=== PATIENT | male | born 1965 | race Hispanic/Latino ===

== ENCOUNTER 2017-08-03 07:45 | Outpatient (CLI) | payer BC ==
--- NOTE | 2017-08-03 10:20 | CT ---
CT HEAD WITHOUT CONTRAST: Technique: Multiple axial tomograms were obtained through the head without IV enhancement. History: Headaches. FINDINGS: No evidence of intracranial mass or hemorrhage. No evidence of infarct. Sinuses and mastoids are aera laura. IMPRESSION: No acute process. POS: [facility]
== END 2017-08-03 07:46 | disposition home or self-care (01) ==
LOC: SCSCT 07:45
PROVIDERS: ATTEND Family Medicine
DX: R51 Headache (principal)
CPT/HCPCS: 70450

== ENCOUNTER 2018-07-11 07:04 | Outpatient (CLI) | payer BC ==
--- NOTE | 2018-07-11 07:45 | ULT ---
SONOGRAM RIGHT UPPER QUADRANT: HISTORY: Normal liver function tests. FINDINGS: Large shadowing stones are present within the incompletely distended gallbladder. No gallbladder wal l thickening or pericholecystic fluid. The common duct is 0.4 cm. The liver is diffusely echogenic with an area of fatty sparing near the gallbladder fossa. No free fluid. IMPRESSION: 1. Cholelithiasis. No evidence of acute biliary obstruction. 2. Hepatosteatosis. POS: [facility]
== END 2018-07-11 07:05 | disposition home or self-care (01) ==
LOC: SCSULT 07:04
PROVIDERS: ATTEND Family Medicine
DX: R74.0 Nonspecific elevation of levels of transaminase and lactic acid dehydrogenase [LDH] (principal); K80.20 Calculus of gallbladder without cholecystitis without obstruction; K76.0 Fatty (change of) liver, not elsewhere classified
CPT/HCPCS: 76705

== ENCOUNTER 2023-12-04 09:58 | Outpatient (CLI) | payer BC | END 2023-12-04 09:59 | disposition home or self-care (01) | LOC: SCSRAD 09:58 | PROVIDERS: ATTEND Nurse Practitioner Family | DX: M47.812 Spondylosis without myelopathy or radiculopathy, cervical region (principal); M25.511 Pain in right shoulder; M19.011 Primary osteoarthritis, right shoulder | CPT/HCPCS: 72040 ==

== ENCOUNTER 2024-06-03 08:39 | Outpatient (CLI) | payer BC | END 2024-06-03 08:40 | disposition home or self-care (01) | LOC: SCSRAD 08:39 | PROVIDERS: ATTEND Family Medicine | DX: M79.642 Pain in left hand (principal); M25.522 Pain in left elbow; M19.042 Primary osteoarthritis, left hand; M77.9 Enthesopathy, unspecified ==